=== PATIENT | male | born 1985 ===

== ENCOUNTER 2018-10-05 18:34 | Emergency (ER) | payer SELFPAY ==
[2018-10-05] MEDS ORDERED: IBUPROFEN 600 MG TABLET PO ONE (18:42)
--- NOTE | 2018-10-05 18:48 | Emergency Department Record ---
History of Present Illness - General Chief Complaint: Ankle/Foot Injury Stated Complaint: LT ANKLE INJURY Time Seen by Provider: 10/05/18 18:42 Source: Patient Mode of Arrival: Ambulatory Limitations: No limitations - History of Present Illness Initial Comments: 33 yo male presents to ED for evaluation of left ankle pain following an inversion injury while walking down stairs. Patient reports that he was wearing dress shoes when he steeped onto uneven pavement resulting in injury. Patient denies other injury on examination, denies pain to the proximal fibula region, but reports significant pain with attempting to ambulate. Patient denies health problems at his baseline. MD Complaint: Ankle injury Onset/Timin -: Minutes(s) Injury: Ankle: Left Type of Injury: Unknown Severity: Moderate Severity scale (1-10): 7 Worsens With: Weight bearing Context: Walking - Related Data Allergies Allergy/AdvReac Type Severity Reaction Status Date / Time No Known Drug Allergies Allergy Verified 10/05/18 18:46 Travel Screening - Travel/Exposure Within Last 30 Days Have you traveled within the last 30 days?: No - Travel Symptoms Symptom Screening: None Review of Systems Constitutional: Denies: Chills, Fever, Malaise, Night sweats Eyes: Denies: Eye discharge, Eye pain ENT: Denies: Congestion, Ear pain, Epistaxis Respiratory: Denies: Cough, Dyspnea Cardiovascular: Denies: Chest pain, Dyspnea on exertion Endocrine: Denies: Fatigue, Heat or cold intolerance Gastrointestinal: Denies: Abdominal pain, Nausea, Vomiting Genitourinary: Denies: Incontinence, Retention Musculoskeletal: Reports: Arthralgia, Joint swelling. Denies: Back pain, Gout Skin: Denies: Bruising, Change in color Neurological: Denies: Abnormal gait, Confusion, Headache, Tingling, Tremors Psychiatric: Denies: Anxiety Hematological/Lymphatic: Denies: Anemia, Blood Clots Past Medical History - SOCIAL HISTORY Smoking Status: Former smoker Alcohol Use: Rare Drug Use: None Family Medical History Any Significant Family History?: Yes Hx Cancer: Father Hx Kidney Disease: Grandparents Physical Exam - General General Appearance: Alert, Oriented x3, Cooperative, Mild distress Limitations: No limitations - Head Head exam: Atraumatic, Normocephalic, Normal inspection Head exam detail: negative: Abrasion, Contusion, Pope's sign, General tenderness, Hematoma, Laceration - Eye Eye exam: Normal appearance. negative: Conjunctival injection, Periorbital swelling, Periorbital tenderness, Scleral icterus - ENT Ear exam: negative: Auricular hematoma, Auricular trauma Nasal Exam: negative: Active bleeding, Discharge, Dried blood, Foreign body Mouth exam: negative: Drooling, Laceration, Muffled voice, Tongue elevation - Neck Neck exam: Normal inspection. negative: Meningismus, Tenderness - Respiratory Respiratory exam: Normal lung sounds bilaterally. negative: Respiratory distress, Rhonchi, Stridor, Wheezes - Cardiovascular Cardiovascular Exam: Regular rate, Normal rhythm, Normal heart sounds Peripheral Pulses: 3+: Dorsalis Pedis (L) - GI/Abdominal GI/Abdominal exam: Soft. negative: Distended, Rebound, Rigid, Tenderness - Rectal Rectal exam: Deferred - exam: Deferred - Extremities Extremities exam: Joint swelling, Tenderness, Other (STS to the left lateral ankle on examination, no pain with palpation of the foot, achilles intact, no pain over the proxoimal fibula. ). negative: Calf tenderness, Pedal edema - Back Back exam: Denies: CVA tenderness (R), CVA tenderness (L) - Neurological Neurological exam: Alert, Oriented X3 - Psychiatric Psychiatric exam: Normal affect, Normal mood - Skin Skin exam: Normal color. negative: Abrasion Type of lesion: negative: abrasion Course Vital Signs 10/05/18 18:39 Temperature 97.7 F Pulse Rate 77 Respiratory 16 Rate Blood Pressure 148/80 Pulse Ox 99 - Reevaluation(s) Reevaluation #1: 10/05/18 19:18 Left Ankle: Negative for fracture Patient was updated on his radiograph results, will administer air splint for lateral support and crutches for comfort. Patient appears stable for discharge at this time. Disposition Disposition: Discharge Clinical Impression: Ankle sprain Qualifiers: Encounter type: initial encounter Involved ligament of ankle: anterior talofibular ligament Laterality: left Qualified Code(s): S93.492A - Sprain of other ligament of left ankle, initial encounter Disposition: Home, Self-Care Condition: (2) Stable Instructions: Ankle Sprain Exercises (GEN), Ankle Sprain (ED) Additional Instructions: Return to ED if your symptoms worsen or if you have any concerns. Ibuprofen and ice as directed. Follow-up with your family doctor in 3-5 days as directed. Forms: Patient Portal Access Time of Disposition: 18:47 Quality - Quality Measures Quality Measures: N/A - Blood Pressure Screening Does Patient Have Any of the Following: No Blood Pressure Classification: Pre-Hypertensive BP Reading Systolic Measurement: 148 Diastolic Measurement: 80 Screening for High Blood Pressure: < Pre-Hypertensive BP, F/U Documented > [G8950] Pre-Hypertensive Follow-up Interventions: Referral to alternative/primary care provider.
--- NOTE | 2018-10-08 13:12 | RADIOLOGY REPORT ---
EXAM: LEFT ANKLE HISTORY: PAIN IN LEFT ANKLE WHILE WALKING DOWN STAIRS. SWOLLEN. TECHNIQUE: Three views of the left ankle were obtained. Comparison: None. Encounter: Initial. FINDINGS: There is some prominent soft tissue swelling particularly laterally and also anteriorly at the left ankle. No definite fracture or dislocation of the left ankle evident. IMPRESSION: 1. PROMINENT SOFT TISSUE SWELLING LATERALLY AND ANTERIORLY. 2. NO FRACTURE OF THE LEFT ANKLE IDENTIFIED. JOB NUMBER: [id number] MTDD
== END 2018-10-05 19:53 | disposition home or self-care (01) ==
LOC: ER 18:34
DX: S93.492A Sprain of other ligament of left ankle, initial encounter (principal); X50.0XXA Overexertion from strenuous movement or load, initial encounter; Z87.891 Personal history of nicotine dependence
CPT/HCPCS: 99283